=== PATIENT | male | born 1965 | race Caucasian/White ===

== ENCOUNTER 2016-09-24 22:47 | Emergency (ER) | payer OTHER ==
[~2016-09-24] VITALS: Ht 172.7 cm; Wt 108.9 kg
[~2016-09-24 22:47] MED LIST: AURALGAN 15 ML15 ML OT; CHOLESTEROL; CIPRODEX 0.3%-7.5 ML OT; LEVOFLOXACIN500 MG PO; MOTRIN IB200 MG PO; PANTOPRAZOLE40 MG PO
[2016-09-24 23:26] LABS: BASO # 0.1 10*3/uL (0.0-0.1); BASO % 0.8 % (0.0-1.0); EOS # 0.2 10*3/uL (0.0-0.4); EOS % 2.8 % (1.0-4.0); LYMPH # 1.5 10*3/uL (1.3-4.4); LYMPH % 23.9 % (27.0-41.0); MEAN CELL VOLUME 93.5 fl (80.0-94.0); MEAN CORPUSCULAR HGB 31.2 pg (27.0-31.0); MEAN CORPUSCULAR HGB CONC 33.3 g/dl (33.0-37.0); MONO # 0.7 10*3/uL (0.1-1.0); NEUT # 3.7 10*3/uL (2.3-7.9); NEUT % 60.2 % (47.0-73.0); PLATELET COUNT AUTOMATED 222 10*3/uL (130-400); RED BLOOD COUNT 4.49 10*6/uL (4.50-5.90); RED CELL DISTRI WIDTH 12.8 % (0-14.5); WHITE BLOOD COUNT 6.2 10*3/uL (4.8-10.8)
[2016-09-24 23:43] LABS: ALBUMIN 3.4 gm/dl (3.1-4.5); ALKALINE PHOSPHATASE 81 U/L (45-117); BILIRUBIN, TOTAL 0.4 mg/dl (0.2-1.0); BUN 15 mg/dl (7-24); CARBON DIOXIDE 29 mmol/L (21-32); CHLORIDE 107 mmol/L (98-107); EST GLOM FILT AFRICAN AMERICAN > 60 ml/min; GLUCOSE 111 mg/dL (65-99); POTASSIUM 4.2 mmol/L (3.5-5.1); SGOT/AST 23 IU/L (3-35); SGPT/ALT 40 U/L (12-78); SODIUM 141 mmol/L (136-145); TOTAL PROTEIN 6.8 gm/dL (6.4-8.2)
[2016-09-25] MEDS ORDERED: CEPHALEXIN500 M1 PO (00:20)
[2016-09-25] MEDS ORDERED: FLOMAX0.4 MG PO (00:20)
[2016-09-25] MEDS ORDERED: KETOROLAC10 MG PO (00:20)
[2016-09-25] MEDS ORDERED: ZOFRAN ODT4 MG SL (00:21)
[2016-09-25 01:06] LABS: BILIRUBIN NEGATIVE (NEGATIVE); BLOOD TRACE-LYSED (NEGATIVE); CLARITY CLEAR (CLEAR); COLOR YELLOW (YELLOW); GLUCOSE NEGATIVE (NEGATIVE); KETONE NEGATIVE (NEGATIVE); LEUKO ESTERASE NEGATIVE (NEGATIVE); NITRITE NEGATIVE (NEGATIVE); PROTEIN NEGATIVE (NEGATIVE)
[2016-09-25 01:14] LABS: URINE REFLEX COMMENT NO (NO); WBC 0-2 wbc/hpf (0-5)
== END 2016-09-25 00:44 | disposition home or self-care (01) ==
LOC: ED 22:47
PROVIDERS: Nurse Practitioner Family
DX: N20.1 Calculus of ureter (principal); Z87.442 Personal history of urinary calculi; Z88.6 Allergy status to analgesic agent; Z91.041 Radiographic dye allergy status; Z79.899 Other long term (current) drug therapy

== ENCOUNTER 2017-01-18 00:47 | Emergency (ER) | payer OTHER ==
[~2017-01-18] VITALS: Ht 172.7 cm; Wt 99.8 kg
[~2017-01-18 00:47] MED LIST changes: +CEPHALEXIN500 M1 PO; +FLOMAX0.4 MG PO; +KETOROLAC10 MG PO; +ZOFRAN ODT4 MG SL
[2017-01-18 01:14] LABS: BASO % 0.6 % (0.0-1.0); EOS # 0.2 10*3/uL (0.0-0.4); EOS % 2.2 % (1.0-4.0); HEMATOCRIT 43.2 % (42.0-52.0); HEMOGLOBIN 14.5 g/dl (14.0-18.0); LYMPH # 1.6 10*3/uL (1.3-4.4); LYMPH % 23.9 % (27.0-41.0); MEAN CELL VOLUME 92.3 fl (80.0-94.0); MEAN CORPUSCULAR HGB CONC 33.6 g/dl (33.0-37.0); MEAN PLATELET VOLUME 10.1 fl (9.6-12.3); MONO # 0.7 10*3/uL (0.1-1.0); MONO % 10.2 % (3.0-9.0); NEUT # 4.3 10*3/uL (2.3-7.9); PLATELET COUNT AUTOMATED 216 10*3/uL (130-400); RED BLOOD COUNT 4.68 10*6/uL (4.50-5.90); WHITE BLOOD COUNT 6.8 10*3/uL (4.8-10.8)
[2017-01-18 01:31] LABS: ALBUMIN 3.4 gm/dl (3.1-4.5); ALKALINE PHOSPHATASE 97 U/L (45-117); BUN 15 mg/dl (7-24); CHLORIDE 104 mmol/L (98-107); CREATININE 1.15 mg/dL (0.70-1.30); POTASSIUM 4.1 mmol/L (3.5-5.1); SGOT/AST 18 IU/L (3-35); SGPT/ALT 46 U/L (12-78); SODIUM 143 mmol/L (136-145); TOTAL PROTEIN 7.1 gm/dL (6.4-8.2)
[2017-01-18 01:57] LABS: BILIRUBIN NEGATIVE (NEGATIVE); BLOOD 3+ (NEGATIVE); CLARITY SL CLOUDY (CLEAR); COLOR YELLOW (YELLOW); GLUCOSE NEGATIVE (NEGATIVE); KETONE NEGATIVE (NEGATIVE); LEUKO ESTERASE NEGATIVE (NEGATIVE); NITRITE NEGATIVE (NEGATIVE); SPECIFIC GRAVITY 1.025 (1.005-1.030)
[2017-01-18 02:07] LABS: BACTERIA TRACE; RBC TNTC rbc/hpf (0-2); WBC 0-2 wbc/hpf (0-5)
== END 2017-01-18 03:01 | disposition home or self-care (01) ==
LOC: ED 00:47
PROVIDERS: Student in an Organized Health Care Education/Training Program
DX: N20.1 Calculus of ureter (principal); N13.30 Unspecified hydronephrosis; Z88.5 Allergy status to narcotic agent; Z88.8 Allergy status to other drugs, medicaments and biological substances; Z91.041 Radiographic dye allergy status; Z87.442 Personal history of urinary calculi

== ENCOUNTER → 2020-08-08 | Outpatient (CLI) | payer OTHER ==
[2020-08-08 17:03] LABS: ACT PARTIAL THROMBO TIME 26.3 SECONDS (20.0-32.1)
== END | disposition home or self-care (01) ==
LOC: LAB 15:40
PROVIDERS: ATTEND Urology
DX: Z01.818 Encounter for other preprocedural examination (principal); N20.0 Calculus of kidney; I21.09 ST elevation (STEMI) myocardial infarction involving other coronary artery of anterior wall

== ENCOUNTER → 2020-10-04 | Outpatient (CLI) | payer OTHER ==
[2020-10-04 17:40] LABS: BASO # 0.1 10*3/uL (0.0-0.1); BASO % 0.9 % (0.0-1.0); EOS # 0.1 10*3/uL (0.0-0.4); EOS % 1.9 % (1.0-4.0); LYMPH # 1.7 10*3/uL (1.3-4.4); LYMPH % 25.9 % (27.0-41.0); MEAN CELL VOLUME 92.4 fl (80.0-94.0); MEAN CORPUSCULAR HGB 30.6 pg (27.0-31.0); MEAN CORPUSCULAR HGB CONC 33.1 g/dl (33.0-37.0); MEAN PLATELET VOLUME 9.6 fl (9.6-12.3); MONO # 0.6 10*3/uL (0.1-1.0); MONO % 8.6 % (3.0-9.0); NEUT % 62.4 % (47.0-73.0); PLATELET COUNT AUTOMATED 272 10*3/uL (130-400); RED BLOOD COUNT 4.87 10*6/uL (4.50-5.90); RED CELL DISTRI WIDTH 12.6 % (0-14.5); WHITE BLOOD COUNT 6.4 10*3/uL (4.8-10.8)
[2020-10-04 17:46] LABS: BILIRUBIN Negative (Negative); BLOOD Negative (Negative); CLARITY Clear (Clear); COLOR Yellow (Yellow); GLUCOSE Negative (Negative); KETONE Trace (Negative); LEUKO ESTERASE Trace (Negative); NITRITE Negative (Negative); SPECIFIC GRAVITY 1.025 (1.001-1.030)
[2020-10-04 18:00] LABS: ALBUMIN 3.6 gm/dl (3.1-4.5); ALKALINE PHOSPHATASE 123 U/L (45-117); BUN 16 mg/dl (7-24); CHLORIDE 107 mmol/L (98-107); CREATININE 1.03 mg/dL (0.70-1.30); POTASSIUM 3.6 mmol/L (3.5-5.1); SGOT/AST 21 IU/L (3-35); SGPT/ALT 36 U/L (12-78); SODIUM 139 mmol/L (136-145); TOTAL PROTEIN 7.4 gm/dL (6.4-8.2)
[2020-10-04 18:01] LABS: BACTERIA TRACE; CALCIUM OXALATE CRYSTALS Trace; RBC 0-2 rbc/hpf (0-2)
[2020-10-04 18:03] LABS: T3 UPTAKE 31 % (31-39)
== END | disposition home or self-care (01) ==
LOC: LAB 17:13
PROVIDERS: ATTEND Urology
DX: N20.0 Calculus of kidney (principal); R31.9 Hematuria, unspecified

== ENCOUNTER 2021-07-05 12:47 | Emergency (ER) | payer OTHER ==
[~2021-07-05] VITALS: Wt 104.3 kg
[2021-07-05] MEDS ORDERED: CEPHALEXIN500 M1 PO (15:42)
== END 2021-07-05 16:31 | disposition home or self-care (01) ==
LOC: ED 12:47
DX: S46.221A Laceration of muscle, fascia and tendon of other parts of biceps, right arm, initial encounter (principal); Z79.899 Other long term (current) drug therapy; Z91.041 Radiographic dye allergy status; Z88.6 Allergy status to analgesic agent; Z88.5 Allergy status to narcotic agent; W23.0XXA Caught, crushed, jammed, or pinched between moving objects, initial encounter; Y93.89 Activity, other specified; Y92.69 Other specified industrial and construction area as the place of occurrence of the external cause; Y99.9 Unspecified external cause status

== ENCOUNTER → 2022-02-25 | Outpatient (CLI) | payer OTHER | END | disposition home or self-care (01) | LOC: MRI 01:53 | PROVIDERS: ATTEND Family Medicine | DX: M51.16 Intervertebral disc disorders with radiculopathy, lumbar region (principal); M47.26 Other spondylosis with radiculopathy, lumbar region; M43.8X4 Other specified deforming dorsopathies, thoracic region; M48.061 Spinal stenosis, lumbar region without neurogenic claudication; N28.1 Cyst of kidney, acquired; M48.04 Spinal stenosis, thoracic region ==

== ENCOUNTER → 2022-03-05 | Outpatient (CLI) | payer OTHER | END | disposition home or self-care (01) | LOC: MRI 02-25 09:00 | PROVIDERS: ATTEND Family Medicine | DX: N28.1 Cyst of kidney, acquired (principal); N28.9 Disorder of kidney and ureter, unspecified ==

== ENCOUNTER 2023-02-27 11:13 | Emergency (ER) | payer OTHER ==
[~2023-02-27] VITALS: Ht 172.7 cm; Wt 117.9 kg
[2023-02-27 12:50] LABS: BASO % 0.6 % (0.0-1.0); EOS # 0.1 10*3/uL (0.0-0.4); EOS % 1.5 % (1.0-4.0); HEMATOCRIT 45.8 % (42.0-52.0); LYMPH % 20.2 % (27.0-41.0); MEAN CORPUSCULAR HGB 30.4 pg (27.0-31.0); MEAN CORPUSCULAR HGB CONC 32.3 g/dl (33.0-37.0); MEAN PLATELET VOLUME 9.6 fl (9.6-12.3); MONO # 0.4 10*3/uL (0.1-1.0); MONO % 8.9 % (3.0-9.0); NEUT # 3.3 10*3/uL (2.3-7.9); NEUT % 68.6 % (47.0-73.0); PLATELET COUNT AUTOMATED 216 10*3/uL (130-400); RED BLOOD COUNT 4.87 10*6/uL (4.50-5.90); RED CELL DISTRI WIDTH 13.2 % (0-14.5); WHITE BLOOD COUNT 4.8 10*3/uL (4.8-10.8)
[2023-02-27 13:08] LABS: ACT PARTIAL THROMBO TIME 26.8 SECONDS (20.0-32.1)
[2023-02-27 13:11] LABS: ALKALINE PHOSPHATASE 100 U/L (46-116); BUN 13 mg/dl (9-23); CHLORIDE 108 mmol/L (98-107); LIPASE 31 U/L (12-53); POTASSIUM 4.2 mmol/L (3.4-5.1); SGPT/ALT 36 U/L (5-49); TOTAL PROTEIN 6.9 gm/dL (6.0-8.0)
[2023-02-27] MEDS ORDERED: MECLIZINE HCL25 M2 PO (15:06)
== END 2023-02-27 15:14 | disposition home or self-care (01) ==
LOC: ED 11:13
PROVIDERS: Emergency Medicine
DX: R42 Dizziness and giddiness (principal); R10.2 Pelvic and perineal pain; Z87.442 Personal history of urinary calculi; Z91.041 Radiographic dye allergy status; Z88.6 Allergy status to analgesic agent; Z88.5 Allergy status to narcotic agent; Z88.8 Allergy status to other drugs, medicaments and biological substances

== ENCOUNTER 2023-09-29 09:01 | Emergency (ER) | payer OTHER ==
[~2023-09-29] VITALS: Ht 172.7 cm; Wt 113.4 kg
[~2023-09-29 09:01] MED LIST changes: +MECLIZINE HCL25 M2 PO
[2023-09-29 13:28] LABS: BASO % 0.9 % (0.0-1.0); EOS # 0.1 10*3/uL (0.0-0.4); EOS % 1.9 % (1.0-4.0); HEMATOCRIT 45.6 % (42.0-52.0); LYMPH # 1.4 10*3/uL (1.3-4.4); LYMPH % 29.7 % (27.0-41.0); MEAN CELL VOLUME 95.2 fl (80.0-94.0); MEAN CORPUSCULAR HGB 31.7 pg (27.0-31.0); MEAN CORPUSCULAR HGB CONC 33.3 g/dl (33.0-37.0); MEAN PLATELET VOLUME 9.6 fl (9.6-12.3); MONO # 0.5 10*3/uL (0.1-1.0); MONO % 9.7 % (3.0-9.0); NEUT # 2.7 10*3/uL (2.3-7.9); NEUT % 57.6 % (47.0-73.0); PLATELET COUNT AUTOMATED 231 10*3/uL (130-400); RED BLOOD COUNT 4.79 10*6/uL (4.50-5.90); RED CELL DISTRI WIDTH 12.5 % (0-14.5); WHITE BLOOD COUNT 4.7 10*3/uL (4.8-10.8)
[2023-09-29 13:48] LABS: BUN 14 mg/dl (9-23); CHLORIDE 104 mmol/L (98-107); POTASSIUM 3.2 mmol/L (3.4-5.1)
[2023-09-29] MEDS ORDERED: POTASSIUM CHLORIDE 20 MEQ TAB PO ONE (14:00)
[2023-09-29] MEDS ORDERED: LEVOFLOXACIN500 MG PO (14:52)
[2023-09-29] MEDS ORDERED: CLEOCIN HCL300 MG PO (14:52)
[2023-09-29] MEDS ORDERED: CLINDAMYCIN HCL 300 MG CAPSULE PO ONE (14:55)
[2023-09-29] MEDS ORDERED: LEVOFLOXACIN 500 MG TAB PO ONE (14:55)
== END 2023-09-29 15:31 | disposition home or self-care (01) ==
LOC: ED 09:01
PROVIDERS: Nurse Practitioner Family
DX: S93.402A Sprain of unspecified ligament of left ankle, initial encounter (principal); Z89.422 Acquired absence of other left toe(s); Z89.412 Acquired absence of left great toe; Z91.041 Radiographic dye allergy status; Z79.899 Other long term (current) drug therapy; Z79.2 Long term (current) use of antibiotics; V29.99XA Rider (driver) (passenger) of other motorcycle injured in unspecified traffic accident, initial encounter; Y93.89 Activity, other specified; Y92.488 Other paved roadways as the place of occurrence of the external cause; Y99.8 Other external cause status

== ENCOUNTER 2024-03-09 13:37 | Emergency (ER) | payer OTHER ==
[~2024-03-09] VITALS: Ht 172.7 cm; Wt 122.5 kg
[~2024-03-09 13:37] MED LIST changes: +CLEOCIN HCL300 MG PO
[2024-03-09] MEDS ORDERED: GOOD NEIGHBOR500 M2 PO (13:54)
[2024-03-09] MEDS ORDERED: SIMVASTATIN20 MG PO (14:06)
[2024-03-09] MEDS ORDERED: LEVOTHYROXINE75 MC1 PO (14:07)
[2024-03-09] MEDS ORDERED: CLARITIN10 M3 PO (14:07)
[2024-03-09] MEDS ORDERED: POTASSIUM CHLO20 MEQ PO (14:07)
[2024-03-09] MEDS ORDERED: Nizoral 2%15 GM T (14:08)
[2024-03-09] MEDS ORDERED: PROSCAR5 M1 PO (14:10)
[2024-03-09] MEDS ORDERED: CHILDREN'S FLO5.9 ML INH (14:10)
[2024-03-09] MEDS ORDERED: CHLORTHALIDONE25 MG PO (14:11)
[2024-03-09] MEDS ORDERED: VITAMIN D325 MCG PO (14:11)
[2024-03-09] MEDS ORDERED: PAIN RELIEVER325 MG PO (14:12)
[2024-03-09] MEDS ORDERED: Ondansetron Hydrochloride 4 MG TAB PO ONE (14:35)
[2024-03-09 14:46] LABS: BASO % 0.6 % (0.0-1.0); EOS # 0.1 10*3/uL (0.0-0.4); EOS % 3.1 % (1.0-4.0); HEMATOCRIT 47.2 % (42.0-52.0); MEAN CELL VOLUME 90.4 fl (80.0-94.0); MEAN CORPUSCULAR HGB 30.5 pg (27.0-31.0); MEAN CORPUSCULAR HGB CONC 33.7 g/dl (33.0-37.0); MEAN PLATELET VOLUME 9.7 fl (9.6-12.3); MONO # 0.4 10*3/uL (0.1-1.0); MONO % 12.9 % (3.0-9.0); NEUT # 1.6 10*3/uL (2.3-7.9); NEUT % 47.8 % (47.0-73.0); PLATELET COUNT AUTOMATED 209 10*3/uL (130-400); RED BLOOD COUNT 5.22 10*6/uL (4.50-5.90); RED CELL DISTRI WIDTH 12.3 % (0-14.5); WHITE BLOOD COUNT 3.3 10*3/uL (4.8-10.8)
[2024-03-09 15:11] LABS: ALKALINE PHOSPHATASE 79 U/L (46-116); BUN 12 mg/dl (9-23); CHLORIDE 101 mmol/L (98-107); LIPASE 39 U/L (12-53); POTASSIUM 3.1 mmol/L (3.4-5.1); SGPT/ALT 55 U/L (5-49); TOTAL PROTEIN 7.3 gm/dL (6.0-8.0)
[2024-03-09] MEDS ORDERED: POTASSIUM CHLORIDE 20 MEQ TAB PO ONE (15:15)
[2024-03-09 16:13] LABS: BILIRUBIN Negative (Negative); BLOOD Negative (Negative); CLARITY Clear (Clear); COLOR Yellow (Yellow); GLUCOSE Negative (Negative); KETONE Trace (Negative); LEUKO ESTERASE Negative (Negative); NITRITE Negative (Negative)
[2024-03-09 16:49] LABS: BACTERIA TRACE; CALCIUM OXALATE CRYSTALS 1+; EPITHELIAL CELLS 0-2; HYALINE CAST 0-2
[2024-03-09] MEDS ORDERED: Ondansetron4 MG PO (16:56)
== END 2024-03-09 18:16 | disposition home or self-care (01) ==
LOC: ED 13:37
PROVIDERS: Physician Assistant Medical
DX: U07.1 COVID-19 (principal); H92.03 Otalgia, bilateral; R10.11 Right upper quadrant pain; J02.9 Acute pharyngitis, unspecified; Z91.041 Radiographic dye allergy status; Z88.6 Allergy status to analgesic agent; Z88.8 Allergy status to other drugs, medicaments and biological substances; Z79.899 Other long term (current) drug therapy; Z87.442 Personal history of urinary calculi; Z98.890 Other specified postprocedural states

== ENCOUNTER 2024-12-01 23:54 | Emergency (ER) | payer OTHER ==
[~2024-12-01 23:54] MED LIST changes: +CHILDREN'S FLO5.9 ML INH; +CHLORTHALIDONE25 MG PO; +CLARITIN10 M3 PO; +GOOD NEIGHBOR500 M2 PO; +LEVOTHYROXINE75 MC1 PO; +Nizoral 2%15 GM T; +Ondansetron4 MG PO; +PAIN RELIEVER325 MG PO; +POTASSIUM CHLO20 MEQ PO; +PROSCAR5 M1 PO; +SIMVASTATIN20 MG PO; +VITAMIN D325 MCG PO
[2024-12-02] MEDS ORDERED: Ondansetron Hydrochloride 4 MG/2 ML VIAL IV ONE (00:15)
[2024-12-02] MEDS ORDERED: FLOMAX0.4 MG PO (02:40)
[2024-12-02] MEDS ORDERED: Ondansetron4 MG PO (02:40)
== END 2024-12-02 02:54 | disposition home or self-care (01) ==
LOC: ED 23:54
DX: N13.2 Hydronephrosis with renal and ureteral calculous obstruction (principal); Z87.442 Personal history of urinary calculi; Z91.041 Radiographic dye allergy status; Z88.6 Allergy status to analgesic agent; Z79.899 Other long term (current) drug therapy